=== PATIENT | female | born 1950 | race Caucasian/White ===

== ENCOUNTER 2023-07-02 06:29 | Inpatient (IN) | payer MEDICARE, SELFPAY ==
--- NOTE | 2023-05-27 10:56 | CM ---
Patient is scheduled for an elective R TKR on 07/02/23. Spoke with patient prior to surgery via telephone. Patient had a L THR at in 2021. Reintroduced role of Orthopedic Navigator. Patient reports that she lives alone in a two story home. There
are two (1-1) steps to enter and a flight of steps to the second floor. There is a powder room on the software developer mid level. She currently functions independently. She has a cpap, rolling walker, raised toilet seat, hip kit and cane. She has never had VN
services. PCP is Dr. Willian Johnson.
Discussed orthopedic program and post surgical plans. Reviewed anticipated length of stay and that goal is for her to return home at discharge. Also reviewed outpatient PT. Patient is in agreement with tentative plan and will go directly to
outpatient PT at [facility]. She states that her ex- will stay with her when she first goes home.
Patient will complete online education.
Plan: Orthopedic Navigator will remain available to assist with the care of patient and will reassess discharge needs after surgery.
[2023-06-09 12:33] VITALS: BMI 40.1
[2023-06-09 13:57] LABS: Hematocrit 40.1 % (37.0-47.0); Hemoglobin 13.4 g/dL (12.0-16.0); Mean Corp Hgb Conc. 33.4 g/dL (33.0-37.0); Mean Corpuscular Hgb 30.7 pg (27.0-31.0); Mean Corpuscular Volume 91.8 fL (81.0-99.0); Mean Platelet Volume 9.3 fL (7.4-10.4); Platelet Count 256 10^3/uL (130-400); Red Blood Cell Count 4.37 10^6/uL (4.20-5.40); Red Cell Dist. Width 13.4 % (11.5-14.5); White Blood Cell Count 6.3 10^3/uL (4.8-10.8)
[2023-06-09 14:37] LABS: ALT (SGPT) 23 U/L (0-35); AST (SGOT) 32 U/L (14-36); Albumin 4.4 g/dl (3.5-5.0); Alkaline Phosphatase 64 U/L (38-126); Blood Urea Nitrogen 26 mg/dl (7-17); Calcium 9.9 mg/dl (8.4-10.2); Carbon Dioxide 26 mmol/L (22-30); Chloride 104 mmol/L (98-107); Estimated Creatinine Clearance 81 ml/min; Glucose 80 mg/dl (70-99); Potassium 4.2 mmol/L (3.5-5.1); Sodium 135 mmol/L (135-145); Total Bilirubin 0.5 mg/dl (0.2-1.3); Total Protein 7.4 g/dl (6.3-8.2); eGFR > 60.00
[2023-06-10 08:32] LABS: Glycohemoglobin (HgbA1c) 5.8 % (4.0-5.6)
[2023-06-26 08:20] VITALS: BMI 40.1
[2023-07-02] VITALS (28 sets, daily range): BP systolic 105–143; BP diastolic 54–113; PULSE 57; O2SAT 97; BMI 40.1
[2023-07-02] MEDS: NORMOSOL-R 1000 IV ×2 (09:49→14:12)
[2023-07-02] MEDS: TYLENOL 650 MG PO ×3 (09:49→20:59)
[2023-07-02] MEDS: CELEBREX 200 MG PO (09:49)
--- NOTE | 2023-07-02 12:22 | W.PN.UPDATE ---
Update Note
Progress Note Update
R knee OA s/p R TKA w/ Dr Dietz 07/02/23
- s/p L SUMI 03/2022
DVT prophylaxis - Eliquis at modified dosing, b/l venous foot pumps
- Home Eliquis dosing to be resumed POD 3 if hemodynamically stable
HTN - + parameters - monitor BP
PAF/Sinus bradycardia - monitor on tele
- Continue Verapamil HS
- Eliquis as stated above
Obstructive sleep apnea, CPAP compliant - monitor O2
- IS
- Resume CPAP HS
Morbid obesity, BMI 40.1 - pt would benefit from Cefadroxil 500 mg PO BID x1 week upon d/c
Hyperlipidemia
Osteopenia
[2023-07-02] MEDS: ROXICODONE 5 MG PO (14:11)
[2023-07-02] MEDS: MORPHINE SULFATE 2 MG IV (16:17)
[2023-07-02] MEDS: ORETIC PO (16:56)
--- NOTE | 2023-07-02 18:28 | PTCARENOTE ---
Pt arrived to 2S in bed. A+Ox3, heart reg Tele applied reading NSR. Lungs clear, hypoactive bowel sounds, R knee aqaucell C/D/I, r knee with trace edema. Bl LE neurovascular assessment WDL. IVF infusing per order. Teds and foot pumps in place per
order. Bed locked and in the lowest position, safety maintained. Oriented to room and call fox, pt set up to eat dinner.
[2023-07-02] MEDS: LIPITOR 10 MG PO (21:00)
[2023-07-02] MEDS: ELIQUIS 2.5 MG PO (21:00)
[2023-07-02] MEDS: DECADRON 4 MG PO (21:00)
[2023-07-02] MEDS: ZETIA 10 MG PO (21:00)
[2023-07-02] MEDS: COLACE 100 MG PO (21:00)
[2023-07-02] MEDS: CALAN EXTENDED RELEASE 120 MG PO (21:01)
[2023-07-02] MEDS: ANCEF 5 IV (21:02)
[2023-07-02] MEDS: PEPCID 20 MG PO (21:02)
[2023-07-02] MEDS: BACTROBAN 2% OINTMENT 1 APPLIC NASAL (21:04)
[2023-07-02] MEDS: ROXICODONE 10 MG PO (21:44)
[2023-07-03] VITALS (9 sets, daily range): BP systolic 125–147; BP diastolic 61–73; PULSE 52–62; O2SAT 93–97
[2023-07-03] MEDS: TYLENOL PO (00:02)
[2023-07-03] MEDS: ANCEF 5 IV (04:04)
[2023-07-03] MEDS: TYLENOL 650 MG PO ×5 (04:04→19:49)
[2023-07-03] MEDS: ROXICODONE 10 MG PO ×2 (04:18→08:40)
[2023-07-03] MEDS: COLACE 100 MG PO ×2 (08:40→19:50)
[2023-07-03] MEDS: ORETIC PO (08:40)
[2023-07-03] MEDS: BACTROBAN 2% OINTMENT 1 APPLIC NASAL ×2 (08:40→20:00)
[2023-07-03] MEDS: DECADRON 4 MG PO ×2 (08:41→19:51)
[2023-07-03] MEDS: ELIQUIS 2.5 MG PO ×2 (08:41→19:51)
--- NOTE | 2023-07-03 09:03 | CM ---
Addendum entered by Joselin Salguero 07/03/23 13:48:
Met with patient and her daughter several times. Patient worked with PT and OT and was unable to do steps. She is complaining of pain but admits to anxiety and a fear of falling. Support and encouragement provided. She will not be discharged today.
Discussed VN services as opposed to OP. She is agreeable. Reviewed options and PAC data. She selects [facility]. Will make referral for PT, OT and SN.
VN referral completed and sent to [facility] through [employer] with request for start of care on 07/04.
Patient was changed to inpatient level of care; IMM reviewed and signed.
Original Note:
Reviewed chart and held rounds with PT, OT and nursing. Patient admitted as planned for elective R TKR. Met with patient at bedside. Confirmed information previously obtained for assessment. Also discussed discharge plans. The plan is for patient to
return home at discharge. Her ex will be staying with her when she first goes home. Patient will go directly to outpatient PT and will go to [facility]. She has an appointment scheduled for Friday, 07/03. Reviewed need to schedule appointment
with PA at Dr. Dietz's office in two weeks for removal of adelita. Patient asked about having home PT for a few sessions. Reviewed benefits of outpatient PT and patient is in agreement with outpatient PT.
Patient has all needed DME at home.
She will use [facility] for discharge prescriptions.
Discharge plans were reviewed with patient's ex on 07/01.
[2023-07-03] MEDS: DILAUDID 0.5 MG IV (10:24)
[2023-07-03] MEDS: LIDOCAINE 4% PATCH 2 PATCH TOPICAL (12:50)
[2023-07-03] MEDS: NEURONTIN 200 MG PO ×3 (12:50→21:21)
[2023-07-03] MEDS: ATIVAN 0.5 MG PO (13:40)
--- NOTE | 2023-07-03 14:45 | W.PN.ORTHO ---
Today's Communication / Plan
-
Monitor pain overnight w/ recent medication adjustments.
Work w/ PT and OT as able.
D/c when clinically stable.
Assessment
.
Distal Motor Intact: Yes
Dressing:
Clean, dry and intact.
Assessment:
R knee OA s/p R TKA w/ Dr Dietz 07/02/23
- s/p L SUMI 03/2022
DVT prophylaxis - Eliquis at modified dosing, b/l venous foot pumps
- Home Eliquis dosing to be resumed POD 3 if hemodynamically stable
HTN - + parameters - monitor BP
PAF/Sinus bradycardia - monitor on tele
- Continue Verapamil HS
- Eliquis as stated above
Obstructive sleep apnea, CPAP compliant - monitor O2
- IS
- Resume CPAP HS
Morbid obesity, BMI 40.1 - pt would benefit from Cefadroxil 500 mg PO BID x1 week upon d/c
Hyperlipidemia
Osteopenia
Plan
.
Surgery / Date: R TKA w/ Dr Dietz 07/02/23
DVT Prophylaxis: Other (Eliquis )
Activity:
Out of bed.
PT/OT
Discharge Plan: Home w/ VN
Subjective
.
.:
Patient examined resting in between OT and PT.
Reports excruciating right knee pain with weightbearing and ambulation - pain meds adjusted. Anxiety definitely factoring into this.
Denies any other new significant complaints.
Vital Signs and Labs
.
Vital Signs and Labs:
Lab Results
06/09/23 12:18
06/09/23 12:18
Temp Pulse Resp BP Pulse Ox
97.8 F 58 17 147/73 97
07/03/23 12:20 07/03/23 12:20 07/03/23 12:20 07/03/23 12:20 07/03/23 12:20
Non-invasive Hgb result: 11.6
Physical Exam
-
HEENT: No pallor, cyanosis, or jaundice. Throat clear.
NECK: Supple. No JVD.
RESPIRATORY: Lungs clear to auscultation.
CVS: S1, S2 normal. RRR.�
ABDOMEN: Soft, non-tender. No distension. Morbidly obese.
EXTREMITIES: Mild post-op R knee edema. Strength equal, no calf pain with palpation/dorsiflexion. Calves soft.
DISTRICT MANAGER MAJOR ACCOUNTS SALES: AOx3. No focal deficits. child care centre manager grossly intact
[2023-07-03] MEDS: DILAUDID 2 MG PO (14:57)
[2023-07-03] MEDS: ZETIA 10 MG PO (17:11)
[2023-07-03] MEDS: LIPITOR 10 MG PO (17:12)
[2023-07-03] MEDS: DILAUDID 4 MG PO (19:51)
[2023-07-03] MEDS: CALAN EXTENDED RELEASE 120 MG PO (21:21)
[2023-07-03] MEDS: PEPCID 20 MG PO (21:21)
[2023-07-04] MEDS: TYLENOL 650 MG PO ×3 (00:54→08:02)
[2023-07-04 04:00] VITALS: BP 152/74
[2023-07-04] MEDS: DILAUDID 4 MG PO ×2 (05:09→09:14)
[2023-07-04 07:48] VITALS: BP 155/77
[2023-07-04] MEDS: DECADRON 4 MG PO (08:01)
[2023-07-04] MEDS: ORETIC 12.5 MG PO (08:01)
[2023-07-04] MEDS: NEURONTIN 200 MG PO (08:01)
[2023-07-04] MEDS: LIDOCAINE 4% PATCH 2 PATCH TOPICAL (08:01)
[2023-07-04] MEDS: COLACE 100 MG PO (08:02)
[2023-07-04] MEDS: ELIQUIS 2.5 MG PO (08:02)
[2023-07-04 09:16] VITALS: BP 149/80; PULSE 64
--- NOTE | 2023-07-04 09:42 | CM ---
Addendum entered by Joselin Salguero 07/04/23 11:16:
Patient has worked with PT and OT and did better today. She is comfortable going home. Discharge plans reviewed with patient and her ex .
Addendum entered by Joselin Salguero 07/04/23 09:55:
Spoke with Casie from [facility] again. She confirms their ability to accept referral. PT to see patient on 07/04. classified ad clerk to fax discharge instructions to [phone]
Original Note:
Reviewed chart and held rounds with PT, OT and nursing. Met with patient at bedside. Patient states that her pain is better today. Her ex will be present for therapy today. Reviewed discharge plans. The plan continues to be for
patient to return home at discharge. Her ex will be staying with her and will be able to assist. Reviewed VN services including start of care, services ordered (PT, OT, SN) and frequency/duration of services. Patient expressed understanding
and continues to select [facility].
Patient has all needed DME at home.
Updated clinical was sent to [facility] through [employer]. Call placed to agency and spoke with Casie. She confirmed receipt of referral and will get back to Navigator with their ability to accept referral.
Patient will use [facility] for discharge prescriptions.
--- NOTE | 2023-07-04 10:15 | W.PN.ORTHO ---
Today's Communication / Plan
-
Await PT recs. Pt did overall better w/ OT this AM.
D/c later today if remaining clinically stable.
Assessment
.
Distal Motor Intact: Yes
Dressing:
Clean, dry and intact.
Assessment:
R knee OA s/p R TKA w/ Dr Dietz 07/02/23
- s/p L SUMI 03/2022
DVT prophylaxis - Eliquis at modified dosing, b/l venous foot pumps
- Home Eliquis dosing to be resumed POD 3 if hemodynamically stable
HTN - + parameters - BPs stable
PAF/Sinus bradycardia - maintaining NSR on tele
- Continue Verapamil HS
- Eliquis as stated above
Obstructive sleep apnea, CPAP compliant - O2 stable on RA
- IS
- Resumed CPAP HS
Morbid obesity, BMI 40.1 - pt would benefit from Cefadroxil 500 mg PO BID x1 week upon d/c
Hyperlipidemia
Osteopenia
Plan
.
Surgery / Date: R TKA w/ Dr Dietz 07/02/23
DVT Prophylaxis: Other (Eliquis )
Activity:
Out of bed.
PT/OT
Discharge Plan: Home w/ VN
Subjective
.
.:
Patient resting comfortably in her chair this AM.
R knee pain better tolerated w/ med adjustments made yesterday.
Denies any new significant complaints.
Eager for potential d/c later today.
Vital Signs and Labs
.
Vital Signs and Labs:
Lab Results
06/09/23 12:18
06/09/23 12:18
Temp Pulse Resp BP Pulse Ox
98.3 F 70 18 155/77 98
07/04/23 07:48 07/04/23 07:48 07/04/23 07:48 07/04/23 07:48 07/04/23 08:00
Non-invasive Hgb result: 11.0
Physical Exam
-
HEENT: No pallor, cyanosis, or jaundice. Throat clear.
NECK: Supple. No JVD.
RESPIRATORY: Lungs clear to auscultation.
CVS: S1, S2 normal. RRR.�
ABDOMEN: Soft, non-tender. No distension. Morbidly obese.
EXTREMITIES: Expected post-surgical R knee edema. Strength equal, no calf pain with palpation/dorsiflexion. Calves soft.
AUTO PHONE INSTALLER: AOx3. No focal deficits. dye house vat worker grossly intact
--- NOTE | 2023-07-04 11:04 | W.DS.TRANS ---
DC Summary - Sling Operator
-
Discharge Instructions:
Discharge Diagnosis/Procedures R knee OA s/p R TKA w/ Dr Dietz 07/02/23
Diet Other diet
Additional Diets Diabetic carb controlled x1 week for wound
healing/infection prevention; then resume
regular diet
Activity As tolerated,With Walker
Driving Restrictions Not until seen by your Dr
Bathing Restrictions OK to Shower
Other Services VN,PT,OT
Wound Care Dressing to be removed 1 week post-surgery.
Demian to be removed at 2 week follow-up
appointment with surgeon's office.
Instructions:
Stand-Alone Forms: Total Hip/Knee Replacement D/C
Changes to Home Medications: Yes
Discharge Medications:
DC Medications w/original date entered in [employer]
apixaban 5 mg tablet (Eliquis) 5 mg PO BID Blood clot prevention/tx 12/25/21
atorvastatin 10 mg tablet 10 mg PO QPM High cholesterol 12/25/21
coQ10 (ubiquinol) 100 mg capsule 100 mg PO DAILY Supplement 12/25/21
ezetimibe 10 mg tablet (Zetia) 10 mg PO QPM High cholesterol 12/25/21
multivitamin 1 tab PO DAILY Supplement 12/25/21
triamcinolone acetonide 55 mcg nasal spray aerosol (Nasacort Allergy) 1 spray intranasal HS Lung/breathing issues 12/25/21
vitamin B complex 1 cap PO DAILY Supplement 12/25/21
ascorbic acid (vitamin C) 500 mg tablet (Vitamin C) 500 mg PO DAILY Supplement 03/01/22
berberine-herbal comb no.18 capsule 1 cap PO BID Supplement 06/04/23
biotin 10,000 mcg chewable tablet (Hair, Skin and Nails (biotin)) 10,000 mcg PO DAILY Supplement 06/04/23
mupirocin 2 % topical ointment 1 applic topical BID infection prevention #1 tube 06/09/23
acetaminophen 650 mg tablet,extended release 1,300 mg (2 x 650 mg) PO Q8H #60 tabs 07/04/23
apixaban 2.5 mg tablet (Eliquis) 2.5 mg PO BID #1 tab 07/04/23
candesartan 32 mg tablet 32 mg PO HS Blood pressure #1 tab 07/04/23
dexamethasone 4 mg tablet 4 mg PO BID #3 tabs 07/04/23
docusate sodium 100 mg capsule 100 mg PO BID #30 caps 07/04/23
famotidine 20 mg tablet 20 mg PO HS #30 tabs 07/04/23
gabapentin 100 mg capsule 200 mg (2 x 100 mg) PO TID neuropathic pain #30 caps 07/04/23
hydrochlorothiazide 12.5 mg tablet 12.5 mg PO DAILY Blood pressure #1 tab 07/04/23
hydromorphone 2 mg tablet 2 mg PO Q4HPRN PRN moderate-severe pain #30 tabs 07/04/23
lidocaine 4 % topical patch 2 patch topical DAILY #30 ea 07/04/23
lorazepam 0.5 mg tablet 0.5 mg PO DAILY PRN muscle spasms/anxiety #7 tabs 07/04/23
ondansetron HCl 4 mg tablet 4 mg PO Q6H PRN nausea and vomiting #30 tabs 07/04/23
sennosides 8.6 mg tablet (Senna Laxative) 17.2 mg (2 x 8.6 mg) PO BID #30 tabs 07/04/23
verapamil 120 mg tablet,extended release 120 mg PO HS Arrhythmia #1 tab 07/04/23
Home Medication Changes
acetaminophen 650 mg tablet,extended release 1,300 mg (2 x 650 mg) PO Q8H #60 tabs 07/04/23
apixaban 2.5 mg tablet (Eliquis) 2.5 mg PO BID #1 tab 07/04/23 - until 4/12 PM
dexamethasone 4 mg tablet 4 mg PO BID #3 tabs 07/04/23
docusate sodium 100 mg capsule 100 mg PO BID #30 caps 07/04/23
famotidine 20 mg tablet 20 mg PO HS #30 tabs 07/04/23
gabapentin 100 mg capsule 200 mg (2 x 100 mg) PO TID neuropathic pain #30 caps 07/04/23
hydromorphone 2 mg tablet 2 mg PO Q4HPRN PRN moderate-severe pain #30 tabs 07/04/23
lidocaine 4 % topical patch 2 patch topical DAILY #30 ea 07/04/23
lorazepam 0.5 mg tablet 0.5 mg PO DAILY PRN muscle spasms/anxiety #7 tabs 07/04/23
ondansetron HCl 4 mg tablet 4 mg PO Q6H PRN nausea and vomiting #30 tabs 07/04/23
sennosides 8.6 mg tablet (Senna Laxative) 17.2 mg (2 x 8.6 mg) PO BID #30 tabs 07/04/23
Pending Results: No
[2023-07-04 11:23] VITALS: BP 150/72; PULSE 63; O2SAT 96
[2023-07-04 11:50] VITALS: BP 149/80
== END 2023-07-04 13:20 | disposition home health service (06) | DRG 470 ==
LOC: 2 SOUTH 06:29
PROVIDERS: ADMITTING PHYSICIAN Orthopaedic Surgery; FAMILY PHYSICIAN Family Medicine
PROC: 0SRC0J9 Replacement of Right Knee Joint with Synthetic Substitute, Cemented, Open Approach (ICD-10-PCS; 2023-07-02)
DX: M17.11 Unilateral primary osteoarthritis, right knee (principal); Z68.41 Body mass index [BMI] 40.0-44.9, adult; E66.01 Morbid (severe) obesity due to excess calories; I48.0 Paroxysmal atrial fibrillation; G47.33 Obstructive sleep apnea (adult) (pediatric); R00.1 Bradycardia, unspecified; I10 Essential (primary) hypertension; E78.5 Hyperlipidemia, unspecified; M85.80 Other specified disorders of bone density and structure, unspecified site; Z96.642 Presence of left artificial hip joint; Z87.828 Personal history of other (healed) physical injury and trauma; Z79.01 Long term (current) use of anticoagulants
CPT/HCPCS: 36415; 73560; 80053; 83036; 85027; 87070; 93005; 97110; 97116; 97162; 97166; 97530; 97535; C1713; C1776